=== PATIENT | male | born 2000 | race Caucasian/White ===

== ENCOUNTER 2023-12-22 18:02 | Emergency (ER) | payer BC, SELFPAY ==
--- NOTE | ~2023-12-22 | CT_ITS ---
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 TECHNIQUE: Computed tomographic angiography (CTA) of the chest was performed, along with multiple con tiguous axial images of the abdomen and pelvis with 100 mL Omnipaque-350 intravenous contrast. The do se-length product was 620.97 mGy-cm. Maximum intensity projection 3D-reconstructions of the aorta and other arteries were constructed by the technologist on a separate workstation. FINDINGS/OBSERVATIONS: PULMONARY ARTERIES: No filling defect is identified within the main or proximal pulmonary artery. The main pulmonary artery is not enlarged. THORACIC AORTA: No aneurysmal dilatation or dissection is present. The great vessels are intact LUNGS: Clear MEDIASTINUM: No morphologically suspicious or pathologically enlarged lymph nodes are identified with in the mediastinum or bilateral axilla. BONES OF THE CHEST: Sternal wires are present, with patient's history of chest surgery as a child. No acute fracture. No significant degenerative disease. No lytic or blastic lesions. HEART: The heart is of normal size, without pericardial effusion. LIVER: The liver is enlarged measuring 20 cm in longitudinal dimension. GALLBLADDER AND BILIARY SYSTEM: The gallbladder is only minimally distended, and otherwise unremarkable. PANCREAS: The pancreas enhances homogeneously without ductal dilatation. SPLEEN: The spleen enhances homogeneously and is not enlarged measuring 8 cm in longitudinal dimension. KIDNEYS: The bilateral kidneys enhance symmetrically without hydronephrosis or renal calculi. ADRENAL GLANDS: Unremarkable. GASTROINTESTINAL TRACT: Moderate fecal stasis within the colon APPENDIX: The air-filled appendix is of normal caliber (axial series, images 116; coronal series, image 38; sag ittal series, image 120). VASCULATURE: Unremarkable. LYMPH NODES: No pathologically enlarged or morphologically suspicious lymph nodes within the retroperitoneum or at the root of the mesentery. PELVIC STRUCTURES: The bladder is asymmetrically distended, and otherwise unremarkable. The prostate gland is not enlarged. BODY WALL AND MUSCULOSKELETAL: No significant degenerative disease within the lower thoracic or lumbosacral spine. IMPRESSION: No acute pathology is appreciated (as detailed above). Moderate fecal stasis. Fatty infiltration of an enlarged liver. Remainder as described. Reviewed, dictated and finalized at location A. PLACER
[2023-12-22 18:05] VITALS: BP 136/70; PULSE 73; RESP 17; TEMP 36.2; O2SAT 99
[2023-12-22 18:41] LABS: Basophils Percent Auto 0.3 % (0.2-1.2); Eosinophils Percent Auto 0.6 % (0-4.4); Hemoglobin 16.5 g/dL (14.0-18.0); Immature Granulocyte Absolute 0.01 K/mm3 (0.00-0.031); Immature Granulocyte Percent A 0.1 % (0-0.5); Lymphocytes Absolute Auto 1.13 K/mm3 (0.9-3.2); Lymphocytes Percent Auto 15.7 % (18.3-44.2); Mean Corpuscular HGB Conc 35.9 g/dl (32-36); Mean Corpuscular Hemoglobin 31.7 pg (26-34); Mean Corpuscular Volume 88.5 fl (80-100); Mean Platelet Volume 10.1 fl (7.4-10.4); Monocytes Absolute Auto 0.6 K/mm3 (0.1-0.6); Monocytes Percent Auto 8.8 % (2.6-8.5); Neutrophils Absolute Auto 5.4 K/mm3 (1.3-6.7); Neutrophils Percent Auto 74.5 % (45.5-73.1); Platelet Count Result 213 k/mm3 (150-375); Red Cell Distribution Width 12.1 % (11.5-14.5); White Blood Count 7.2 K/mm3 (4.5-10.0)
[2023-12-22 18:52] LABS: Alanine Aminotransferase 44 U/L (6-50); Alkaline Phosphatase 83 U/L (38-126); Anion Gap 9 mmol/L (4-12); Aspartate Amino Transferase 38 U/L (17-59); Blood Urea Nitrogen 15 mg/dL (9-20); Calcium 9.4 mg/dL (8.4-10.2); Carbon Dioxide 28 mmol/L (22-30); Chloride 101 mmol/L (98-107); Estimated CRCL calculation 103 ml/min; Estimated Glomerular Filt Rate > 60; Glucose 86 mg/dL (65-110); Lipase 40 U/L (23-300); Potassium 3.7 mmol/L (3.4-5.0); Sodium 138 mmol/L (137-145)
[2023-12-22 18:56] LABS: Add Urine Microscopic? NO; Appearance Urine Clear (Clear); Bilirubin Urine Negative (Negative); Blood Urine Negative (Negative); Color Urine Yellow (Yellow); Glucose Urine UA Negative (Negative); Ketones Urine Negative (Negative); Leukocyte Esterase Ur Negative LEU/UL (Negative); Nitrate Urine Negative (Negative); Protein Urine Negative (Negative); Specific Grav Ur 1.018 (1.001-1.035); Urobilinogen Urine 0.2 mg/dL (<2.0)
--- NOTE | 2023-12-22 19:46 | ED.GENADULT ---
HPI - General Adult General Chief complaint: Abdominal Pain Stated complaint: abd pain Time Seen by Provider: 12/22/23 18:17 History of Present Illness HPI narrative: Patient is a 23-year-old gentleman who presents emergency department with chief complaint of abdominal pain. The patient reports that he has prior history of thoracic surgeries when he was a child reports that he started having pain in his chest the left shoulder area and then started having right-sided abdominal pain the patient states the pain is worse with movement reports that he has not really had any real urination since then reports he has had some loose bowel movements. The patient reports pain is worse with movement reports no fever nausea or vomiting. Related Data Allergies Allergy/AdvReac Type Severity Reaction Status Date / Time No Known Allergies Allergy Verified 12/22/23 18:07 Review of Systems Review of Systems: A 10 system review of systems was completed on the patient and is negative except for what is stated in the HPI. Nursing and ancillary documentation was reviewed. Exam Narrative: GENERAL: Well-appearing, well-nourished, and in no acute distress. HEAD: Normocephalic, atraumatic. EYES: PERRLA and EOMI. ENT: Nares clear, no rhinorrhea or epistaxis. Mucous membranes moist. NECK: Supple. CHEST: Clear to auscultation. No respiratory distress. HEART: Regular rate and rhythm. No murmur heard. Normal peripheral pulses. ABDOMEN: Soft, Tenderness to palpation right lower quadrant right upper quadrant, nondistended, normal active bowel sounds. EXTREMITIES: Normal range of motion. No edema. SKIN: Warm, dry, no rash. NEURO: No focal deficits. Alert and oriented x3. PSYCH: Normal mood and affect. Course Vital Signs Vital signs: Vital Signs Temperature 36.2 C L 12/22/23 18:05 Pulse Rate 73 12/22/23 18:05 Respiratory Rate 17 12/22/23 18:05 Blood Pressure 136/70 12/22/23 18:05 Pulse Oximetry 99 12/22/23 18:05 Oxygen Delivery Room Air 12/22/23 18:05 Temperature 36.2 C L 12/22/23 18:05 Pulse Rate 76 12/22/23 22:24 Respiratory Rate 16 12/22/23 22:24 Blood Pressure 128/72 12/22/23 22:24 Pulse Oximetry 100 12/22/23 22:24 Oxygen Delivery Room Air 12/22/23 18:05 Medical Decision Making MDM Narrative Medical decision making narrative: differential diagnosis includes intra-abdominal infection, pulmonary embolism, electrolyte abnormality, UTI, pyelonephritis, ureterolithiasis, biliary colic laboratory studies were obtained on the patient showed a normal urinalysis CBC and CMP showed no acute abnormality CT scan of the chest with PE protocol and abdomen pelvis showed no evidence of PE no evidence of acute abnormality. There was moderate fecal stasis the patient will be given a dose of magnesium citrate and will be discharged home Vital Signs Vital Signs: Vital Signs Temperature 36.2 C L 12/22/23 18:05 Pulse Rate 73 12/22/23 18:05 Respiratory Rate 17 12/22/23 18:05 Blood Pressure 136/70 12/22/23 18:05 Pulse Oximetry 99 12/22/23 18:05 Oxygen Delivery Room Air 12/22/23 18:05 Temperature 36.2 C L 12/22/23 18:05 Pulse Rate 76 12/22/23 22:24 Respiratory Rate 16 12/22/23 22:24 Blood Pressure 128/72 12/22/23 22:24 Pulse Oximetry 100 12/22/23 22:24 Oxygen Delivery Room Air 12/22/23 18:05 Lab Data 12/22/23 18:36 12/22/23 18:36 Labs: Lab Results 12/22/23 12/22/23 Range/Units 18:36 18:44 WBC 7.2 (4.5-10.0) K/mm3 RBC 5.20 (4.6-6.20) M/mm3 Hgb 16.5 (14.0-18.0) g/dL Hct 46.0 (42.0-52.0) % MCV 88.5 (80-100) fl MCH 31.7 (26-34) pg MCHC 35.9 (32-36) g/dl RDW 12.1 (11.5-14.5) % Plt Count 213 (150-375) k/mm3 MPV 10.1 (7.4-10.4) fl Immature Gran % (Auto) 0.1 (0-0.5) % Neut % (Auto) 74.5 H (45.5-73.1) % Lymph % (Auto) 15.7 L (18.3-44.2) % [place] % (Auto) 8.8 H (2.6-8.5) % Eos % (Auto) 0.6 (0-4.4) % Baso % (Auto) 0.3 (0.2-1.2) % Lymph # (Auto) 1.13 (0.9-3.2) K/mm3 [place] # (Auto) 0.6 (0.1-0.6) K/mm3 Eos # (Auto) 0.0 (0-0.3) K/mm3 Baso # (Auto) 0.0 (0.0-0.1) K/mm3 Abs Immat Gran (auto) 0.01 (0.00-0.031) K/mm3 Absolute Neuts (auto) 5.4 (1.3-6.7) K/mm3 Absolute Nucleated RBC 0.000 (0.0-0.012) K/mm3 Nucleated RBC % 0.0 (0.0-0.2) % Sodium 138 (137-145) mmol/L Potassium 3.7 (3.4-5.0) mmol/L Chloride 101 (98-107) mmol/L Carbon Dioxide 28 (22-30) mmol/L Anion Gap 9 (4-12) mmol/L BUN 15 (9-20) mg/dL Creatinine 0.80 (0.7-1.3) mg/dL Estim Creat Clear Calc 103 ml/min Estimated GFR > 60 (59 - ) Glucose 86 (65-110) mg/dL Calcium 9.4 (8.4-10.2) mg/dL Total Bilirubin 1.0 (0.2-1.3) mg/dL AST 38 (17-59) U/L ALT 44 (6-50) U/L Alkaline Phosphatase 83 (38-126) U/L Total Protein 8.0 (6.3-8.2) g/dL Albumin 5.0 (3.5-5.1) g/dL Lipase 40 (23-300) U/L Urine Color Yellow (Yellow) Urine Appearance Clear (Clear) Urine pH 6.0 (5.0-9.0) Ur Specific [place] 1.018 (1.001-1.035) Urine Protein Negative (Negative) mg/dL Urine Glucose (UA) Negative (Negative) mg/dL Urine Ketones Negative (Negative) mg/dL Ur Blood (Man) Negative (Negative) Urine Nitrate Negative (Negative) Urine Bilirubin Negative (Negative) Urine Urobilinogen 0.2 (<2.0) mg/dL Leukocyte Esterase Rfl Negative (Negative) DARIEN/UL Discharge Plan Discharge Clinical Impression: Abdominal pain Patient Disposition: Home, Self-Care Condition: Stable Instructions: Antibiotic Form, Abdominal Pain (ED) Follow-up/Referrals: PHYSICIAN NOT ON STAFF,NONSTAFF [Primary Care Provider] - Time of Disposition: 22:55
[2023-12-22 22:24] VITALS: BP 128/72; PULSE 76; RESP 16; O2SAT 100
[2023-12-22] MEDS: MAGNESIUM CITRATE 300 ML BTL PO (23:11)
[2023-12-22 23:15] VITALS: BP 120/72; PULSE 74; RESP 15; TEMP 36.9; O2SAT 100
== END 2023-12-22 23:17 | disposition home or self-care (01) ==
PROVIDERS: Emergency Provider Emergency Medicine
DX: R10.9 Unspecified abdominal pain (principal); K76.0 Fatty (change of) liver, not elsewhere classified
CPT/HCPCS: 36415; 71275; 74177; 80053; 81003; 83690; 85025; 99284; A9270; Q9967